=== PATIENT | male | born 1990 | race African-American/Black ===

== ENCOUNTER 2021-12-05 09:48 | Emergency (ER) | payer OTHER ==
[~2021-12-05] VITALS: Ht 170.2 cm; Wt 75.0 kg
[2021-12-05] MEDS ORDERED: KETOROLAC 60MG/2ML VIAL IM ONE (10:15)
[2021-12-05] MEDS ORDERED: OXYCODONE HCL/ACETAMINOPHEN 5/325MG TABLET PO ONE (10:15)
[2021-12-05 11:58] VITALS: BP 107/75
[2021-12-05] MEDS ORDERED: DEXAMETHASONE 10 MG/ML VIAL IV ONE (12:00)
[2021-12-05] MEDS ORDERED: MORPHINE SULFATE 4 MG/ML CPJ (NOT FOR IM USE) IV ONE (12:00)
[2021-12-05] MEDS ORDERED: IBUP-2028 PO (13:03)
[2021-12-05] MEDS ORDERED: OXYC-100 PO (13:03)
== END 2021-12-05 13:20 | disposition home or self-care (01) ==
LOC: ER 09:48
DX: M54.50 Low back pain, unspecified (principal)
CPT/HCPCS: 96372; 96374; 96375; 99284; J1100; J1885; J2270